=== PATIENT | male | born 1960 | race Caucasian/White ===

== ENCOUNTER 2018-11-08 07:16 | Day surgery (SDC) | payer OTHER ==
[~2018-11-08] VITALS: Ht 185.4 cm; Wt 133.0 kg
[~2018-11-08 07:16] MED LIST: ASPI-903 PO; NORVASC
[2018-11-08 08:01] VITALS: Ht 185.4 cm; Wt 133.0 kg
[2018-11-08 08:15] VITALS: BP 148/84; PULSE 73; RESP 18
[2018-11-08] MEDS ORDERED: LIDOCAINE 100 MG SYRINGE ONE (08:21)
[2018-11-08] MEDS ORDERED: PROPOFOL 40 ML ONE (08:21)
--- NOTE | 2018-11-08 08:28 | PREAC ---
Date/Time of Note Date/Time of Note DATE: 11/08/18 TIME: 08:23 Anesthesia Eval and Record Evaluation Time Pre-Procedure Interview DATE: 11/08/18 TIME: 08:23 Age 58 Sex male NPO: 8 hrs Preoperative diagnosis positive occult blood Planned procedure colonoscopy Past Medical History Past Medical History: Includes Cardio: HTN Pulm: Smoking Hx GI: Obesity Surgery & Anesthesia Issues No known issue Meds Anticoagulation: No Beta Az within 24 hr: No Reason Beta Az not given: Pt. not on B-Az Reported Medications [Norvas] No Conflict Check 11/08/18 Aspirin* (Aspirin* Chew) 81 Mg Tab.chew, 81 MG PO DAILY, TAB.CHEW 11/08/18 Meds reviewed: Yes Allergies Coded Allergies: No Known Allergies (Verified Allergy, Unknown, 12/07/08) Allergies Reviewed: Yes Labs/Studies Labs Reviewed: Other (NA) test: N/A Pre-procedure Exam Last vitals Vital Signs Date Temp Pulse Resp B/P (MAP) Pulse Ox O2 O2 Flow FiO2 Time Delivery Rate 11/08/18 98.0 73 18 148/84 95 Room Air 08:15 (105) Airway: Adequate mouth opening Mallampati: Mallampati II Teeth: Normal Lung: Normal Heart: Normal ASA Physical Status ASA physical status: 3 Emergency: None Planned Anesthetic General/MAC: MAC Pre-operative Attestations Prior to commencing anesthesia and surgery, the patient was re-evaluated, there was verification of: *The patient's identity *The results of appropriate recent lab work and preoperative vital signs *The above evaluation not changing prior to induction *Anesthetic plan, risk benefits, alternative and complications discussed with patient/family; questions answered; patient/family understands, accepts and wishes to proceed. FILIPPO KRUSE Nov 08, 2018 08:27
--- NOTE | 2018-11-08 08:57 | PAC ---
Date/Time of Note Date/Time of Note DATE: 11/08/18 TIME: 08:57 Post-Anesthesia Notes Post-Anesthesia Note Last documented vital signs Vital Signs Date Temp Pulse Resp B/P (MAP) Pulse Ox O2 O2 Flow FiO2 Time Delivery Rate 11/08/18 98.0 73 18 148/84 95 Room Air 08:15 (105) Activity: WNL Respiratory function: WNL Cardiovascular function: WNL Mental status: Baseline Pain reasonably controlled: Yes Hydration appropriate: Yes Nausea/Vomiting absent: Yes FILIPPO KRUSE Nov 08, 2018 08:57
[2018-11-08 09:27] VITALS: BP 125/86; RESP 18
== END 2018-11-08 11:24 | disposition home or self-care (01) ==
LOC: GIL 07:16
PROVIDERS: ATTEND Internal Medicine Gastroenterology
DX: K92.1 Melena (principal); K64.8 Other hemorrhoids; D17.5 Benign lipomatous neoplasm of intra-abdominal organs
CPT/HCPCS: 45380; 88305; J2001; Z7610